=== PATIENT | male | born 1955 | race Caucasian/White ===

== ENCOUNTER 2018-09-04 21:16 | Emergency (ER) | payer OTHER ==
[~2018-09-04] VITALS: Ht 172.7 cm; Wt 79.4 kg
[2018-09-04] MEDS ORDERED: KETOROLAC TROMETHAMINE 30 MG/ML VIAL IV STA (22:07)
[2018-09-04] MEDS ORDERED: SODIUM CHLORIDE 0.9% 1000ML 1,000 ML IV SCH (22:15)
[2018-09-04 22:37] LABS: BASOPHILS % 0.1 % (0.0-1.0); EOSINOPHILS # (AUTO) 0.1 (0.0-0.4); EOSINOPHILS % 0.6 % (0.0-6.0); HEMATOCRIT 40.3 % (38.2-49.6); HEMOGLOBIN 13.3 g/dL (14.0-18.0); LYMPHOCYTES # (AUTO) 1.5 (1.0-3.2); LYMPHOCYTES % 9.7 % (18.0-39.1); MEAN CORPUSCULAR HEMOGLOBIN 31.3 pg (28-32); MEAN CORPUSCULAR VOLUME 94.8 fL (81-99); MONOCYTES # (AUTO) 1.6 (0.2-0.8); MONOCYTES % 10.2 % (4.4-11.3); NEUTROPHILS # (AUTO) 12.2 (2.1-6.9); NEUTROPHILS % 78.9 % (38.7-80.0); PLATELET COUNT 342 x10e3/uL (140-360); RED BLOOD COUNT 4.25 x10e6/uL (4.3-5.7); RED CELL DISTRIBUTION WIDTH 12.6 % (11.7-14.4)
--- NOTE | 2018-09-04 22:41 | Diagnostic Imaging Report ---
EXAM: CT Abdomen and Pelvis WITHOUT contrast INDICATION: ^R/O KIDNEY STONE. Right flank pain. COMPARISON: None. TECHNIQUE: Abdomen and pelvis were scanned utilizing a multidetector helical scanner from the lung base to the pubic symphysis without administration of IV contrast. Absence of intravenous contrast decreases sensitivity for detection of focal lesions and vascular pathology. Coronal and sagittal reformations were obtained. Stone protocol is performed. IV CONTRAST: None ORAL CONTRAST: Water COMPLICATIONS: None RADIATION DOSE: Total DLP: 382.16 mGy*cm Estimated effective dose: (DLP x 0.015 x size factor) mSv CTDIvol has been reviewed. It is below the limits set by the Radiation Protocol Committee (RPC). Dose modulation, iterative reconstruction, and/or weight based adjustment of the mA/kV was utilized to reduce the radiation dose to as low as reasonably achievable. FINDINGS: LINES and TUBES: None. LOWER THORAX: Unremarkable HEPATOBILIARY: The liver is diffuse hypodense compared to the spleen, consistent with diffuse hepatic diffuse hepatic steatosis. No focal hepatic lesions. No biliary ductal dilation. GALLBLADDER: Possible gallstones. No wall thickening. SPLEEN: No splenomegaly. PANCREAS: No focal masses or ductal dilatation. ADRENALS: No adrenal nodules KIDNEYS/URETERS: No hydronephrosis. No cystic or solid mass lesions. Three 2-mm right renal stones. Mild right renal edema and enlargement with mild right hydronephrosis. No hydroureter. 4.6 mm proximal right ureteral stone without hydroureter at L3 level. There are inflammatory changes extends along the right paracolic gutter. 1 punctate 1 to 2 mm stone in the interpolar region of the left kidney. No hydronephrosis. GI TRACT: No abnormal distention, wall thickening, or evidence of bowel obstruction. There are diverticula within the colon without evidence of diverticulitis. Appendix is normal. PELVIC ORGANS/BLADDER: Unremarkable. LYMPH NODES: No lymphadenopathy. VESSELS: There is mild atherosclerotic disease in the aorta and major arterial branches. PERITONEUM / RETROPERITONEUM: No free air or fluid. BONES: Moderate degenerative changes in bilateral hips. SOFT TISSUES: Bilateral vasectomy clips. IMPRESSION: 1. 4.6 mm proximal right ureteral stone at L3 level. No hydroureter. Mild hydronephrosis. Right renal enlargement with surrounding inflammatory changes. Recommend correlation with urinalysis to exclude possible superimposed pyelonephritis. 2. 3 punctate right and one left renal stones. Signed by: Dr. Duran Rodriguez M.D. on 09/04/2018 10:38 PM
[2018-09-04 22:48] LABS: CLARITY,URINE CLEAR (CLEAR); COLOR,URINE YELLOW (YELLOW)
[2018-09-04 22:49] LABS: BILIRUBIN,URINE NEGATIVE (NEGATIVE); KETONES,URINE 1+ (NEGATIVE); LEUKOCYTE ESTERASE ,URINE NEGATIVE (NEGATIVE); NITRITE,URINE NEGATIVE (NEGATIVE); PROTEIN,URINE DIPSTICK NEGATIVE (NEGATIVE); URINE UROBILINOGEN 0.2 mg/dL (0.2 - 1)
[2018-09-04 22:59] LABS: BACTERIA,URINE FEW /HPF; EPITHELIAL CELLS,URINE FEW /LPF; WBC,URINE (MAN) 0-5 /HPF (0-5)
[2018-09-04] MEDS ORDERED: MORPHINE SULFATE INJ 4 MG/ML INJ 1ML IV STA (23:00)
[2018-09-04] MEDS ORDERED: ONDANSETRON HCL INJ 2MG/ML 2ML 2 MG/ML VIAL IV STA (23:00)
[2018-09-04 23:11] LABS: ALBUMIN 3.7 g/dL (3.5-5.0); ALBUMIN/GLOBULIN RATIO 1.2 (0.8-2.0); CALCIUM 9.5 mg/dL (8.4-10.2); CREATININE, SERUM 1.69 mg/dL (0.72-1.25)
[2018-09-04 23:28] LABS: MAGNESIUM 1.9 MG/DL (1.3-2.1)
[2018-09-05 00:08] VITALS: BP 143/73
== END 2018-09-05 00:34 | disposition home or self-care (01) ==
LOC: ER 21:16
DX: R10.31 Right lower quadrant pain (principal); R11.0 Nausea; N20.1 Calculus of ureter
CPT/HCPCS: 36415; 74176; 80053; 81001; 83690; 83735; 85025; 99284; J1885; J2405; J7030

== ENCOUNTER → 2018-10-21 | Outpatient (CLI) | payer BC ==
--- NOTE | 2018-10-21 15:36 | Diagnostic Imaging Report ---
Exam: Abdominal film Clinical History: Renal calculus Comparison: CT abdomen and pelvis 09/04/2018 DISCUSSION: A 2 mm calcification projects over the lower pole of the right kidney. Proximal right ureteral calculus described on the comparison CT is not definitively the visualized by plain radiography. No additional calcifications project over the renal shadows or expected ureteral courses. Regional skeletal structures are intact. Degenerative arthrosis of the hips. Bowel gas pattern nonobstructive. IMPRESSION: 2 mm right lower pole renal calculus as seen on comparison CT. Proximal right ureteral calculus described on the comparison CT is not visualized by plain radiography and may have passed in the interim. Signed by: Dr. Tien Ramírez M.D. on 10/21/2018 3:33 PM
== END ==
LOC: RAD 14:37
PROVIDERS: ATTEND Urology
DX: N20.0 Calculus of kidney (principal)
CPT/HCPCS: 74018

== ENCOUNTER → 2019-02-01 | Outpatient (CLI) | payer BC ==
--- NOTE | 2019-02-01 12:48 | Diagnostic Imaging Report ---
Exam: KUB - 2 views Indication: Renal calculi Comparison: KUB of 10/21/2018 Findings: At least two 3 mm calcific densities overlying the lower pole the right kidney likely represent the renal calculi seen on prior CT of 09/04/2018. No additional definite radiographically apparent renal calculi. Nonobstructive bowel gas pattern. No free air. The minimally visualized lung bases appear clear. Mild degenerative changes of the lower lumbar spine and both hip joints. Phleboliths in the pelvis. Impression: At least two 3 mm calcific densities overlying the lower pole the right kidney likely represent the renal calculi seen on prior CT of 09/04/2018. Signed by: Velma Corona MD on 02/01/2019 12:45 PM
== END ==
LOC: RAD 10:48
PROVIDERS: ATTEND Urology
DX: N20.0 Calculus of kidney (principal)
CPT/HCPCS: 74018

== ENCOUNTER → 2019-04-23 | Outpatient (CLI) | payer BC ==
--- NOTE | 2019-04-23 09:04 | Diagnostic Imaging Report ---
Exam: KUB - 2 views Indication: Renal calculus Comparison: KUB of 02/01/2019, CT abdomen pelvis of 09/04/2018 Findings: Left midpole subtle calcific density measures up to 3 mm and may represent renal calculus versus intraluminal bowel content. Right lower pole 3 mm renal calculus as before. Nonobstructive bowel gas pattern. No free air. Phleboliths in the pelvis. Degenerative changes of the visualized spine and both southern [place] hip joints. Impression: 3 mm right renal calculus. 3 mm calcific density on the left may represent renal calculus versus intraluminal bowel content. Signed by: Velma Corona MD on 04/23/2019 9:00 AM
== END ==
LOC: RAD 08:07
PROVIDERS: ATTEND Urology
DX: R31.29 Other microscopic hematuria (principal)
CPT/HCPCS: 74018

== ENCOUNTER → 2019-07-26 | Outpatient (CLI) | payer BC ==
--- NOTE | 2019-07-26 09:16 | Diagnostic Imaging Report ---
Abdomen, one view on 2 radiographs Clinical indications: Calculus of kidney Comparison: Abdominal radiograph dated 04/23/2019, CT of the head of pelvis dated 09/04/2018 Impression: Two 3-mm calculi overlie the lower pole of the right kidney and a 2 mm calculus overlies the mid pole right kidney. No definite left renal calculi identified. Signed by: Isidoro Dunn MD on 07/26/2019 9:13 AM
== END ==
LOC: RAD 08:48
PROVIDERS: ATTEND Urology
DX: N20.0 Calculus of kidney (principal)
CPT/HCPCS: 74018

== ENCOUNTER → 2019-11-08 | Outpatient (CLI) | payer BC ==
--- NOTE | 2019-11-08 11:49 | Diagnostic Imaging Report ---
EXAM: ABDOMEN-1VIEW (KUB) DATE: 11/08/2019 11:25 AM INDICATION: Calculus of kidney COMPARISON: 07/26/2019 FINDINGS: Bowel gas pattern appears nonobstructive. Bowel gas partially obscures the renal shadows limiting evaluation. Approximately 3 subcentimeter calcifications noted projecting over the mid/inferior right kidney measuring up to 3 mm. Findings are similar to the prior examination. No radiographically evident left renal calculi are appreciated. No other abnormal intra-abdominal calcification is identified. No acute osseous abnormality is identified. IMPRESSION: 3 subcentimeter calcifications noted projecting over the right kidney likely representing small calculi, similar to the prior examination. Signed by: Dr. Conor Espinal MD on 11/08/2019 11:46 AM
== END ==
LOC: RAD 11:04
PROVIDERS: ATTEND Urology
DX: N20.0 Calculus of kidney (principal)
CPT/HCPCS: 74018

== ENCOUNTER → 2020-02-09 | Outpatient (CLI) | payer BC ==
--- NOTE | 2020-02-09 09:01 | Diagnostic Imaging Report ---
Exam: KUB - 2 views Indication: Renal calculus Comparison: KUB 11/08/2019 Findings: Again seen are several 3 mm calcific densities overlying the right renal silhouette compatible with right renal calculi. Nonobstructive bowel gas pattern. No free air. No acute osseous injury. Phleboliths in the left pelvis. Impression: Unchanged 3 mm right renal calculi. Signed by: Velma Corona MD on 02/09/2020 8:57 AM
== END ==
LOC: RAD 08:12
PROVIDERS: ATTEND Urology
DX: N20.0 Calculus of kidney (principal)
CPT/HCPCS: 74018

== ENCOUNTER → 2020-09-14 | Outpatient (CLI) | payer BC | LOC: RAD 07:20 | PROVIDERS: ATTEND Urology | DX: N20.0 Calculus of kidney (principal) | CPT/HCPCS: 74018 ==